=== PATIENT | female | born 2000 | race Caucasian/White ===

== ENCOUNTER 2021-01-17 07:03 | Emergency (ER) | payer SELFPAY ==
[~2021-01-17] VITALS: Ht 160 cm; Wt 117.9 kg
[2021-01-17 07:11] VITALS: BP_SYST 130
--- NOTE | 2021-01-17 07:23 | NUR ---
PT COMES TO ER WITH C/O LEFT THIGH POSS "BUG BITE" "PIMPLE" WORSENING FOR THE LAST 3 DAYS. DENIES ANY FEVERS OR CHILLS. SITE SLIGHTLY RED, WARM TO TOUCH. NO DRAINAGE OR OPEN WOUNDS AT THIS TIME.
--- NOTE | 2021-01-17 07:31 | NUR ---
DR NINA AT BEDSIDE FOR EXAM
[2021-01-17 08:02] LABS: BASOPHILS # (AUTO) 0.1 K/uL (0.0-0.2); BASOPHILS % (AUTO) 0.6 % (0.0-2.0); EOSINOPHILS # (AUTO) 0.1 K/uL (0.0-0.4); EOSINOPHILS % (AUTO) 0.8 % (0.0-4.0); HEMATOCRIT 38.9 % (36-48); HEMOGLOBIN 13.7 g/dL (12.0-16.0); LYMPHOCYTES % (AUTO) 22.4 % (20.5-51.5); MEAN CORPUSCULAR HEMOGLOBIN 29 pg (27-31); MEAN CORPUSCULAR HGB CONC 35 % (32-36); MEAN CORPUSCULAR VOLUME 83 fL (79.0-98.0); MONOCYTES # (AUTO) 0.7 K/uL (0.0-1.0); MONOCYTES % (AUTO) 7.4 % (1.7-9.3); NEUTROPHILS % (AUTO) 68.8 % (40.0-70.0); PLATELET COUNT (AUTO) 308 K/uL (130-430); RED BLOOD CELL COUNT(AUTO) 4.71 MIL/uL (4.2-6.2); RED CELL DISTRIBUTION WIDTH 12.5 % (9.0-15.0); WHITE BLOOD COUNT (AUTO) 8.8 K/uL (4.8-10.8)
[2021-01-17 08:26] LABS: CALCIUM 8.7 mg/dL (8.4-11.0); CREATININE 0.57 mg/dL (0.55-1.30); POTASSIUM 3.8 mmol/L (3.5-5.1)
[2021-01-17 08:31] LABS: ALBUMIN 3.7 g/dL (3.4-4.8); TOTAL BILIRUBIN 0.6 mg/dL (0.0-1.0)
--- NOTE | 2021-01-17 08:36 | NUR ---
NO ACUTE CHANGES IN CONDITION, WAITING FOR DISPOSITION.
[2021-01-17 08:38] LABS: C-REACTIVE PROTEIN QUANT 0.3 mg/dL (0-0.5)
[2021-01-17] MEDS ORDERED: IBUP-1969 PO (09:28)
[2021-01-17] MEDS ORDERED: CLIN300C12 PO (09:28)
[2021-01-17 10:00] VITALS: BP_SYST 122
--- NOTE | 2021-01-17 10:00 | NUR ---
Patient given written and verbal discharge instructions and verbalizes understanding. ER MD discussed with patient the results and treatment provided. Patient in stable condition. ID arm band removed. Rx of given. Patient educated on pain management and to follow up with PMD. Pain Scale . Opportunity for questions provided and answered. Medication side effect fact sheet provided.
== END 2021-01-17 10:00 | disposition home or self-care (01) ==
LOC: SED 07:03
DX: S70.362A Insect bite (nonvenomous), left thigh, initial encounter (principal); L03.116 Cellulitis of left lower limb; W57.XXXA Bitten or stung by nonvenomous insect and other nonvenomous arthropods, initial encounter; Y93.89 Activity, other specified; Y92.89 Other specified places as the place of occurrence of the external cause; Y99.8 Other external cause status
CPT/HCPCS: 36415; 80053; 83605; 85025; 86140; 99283

== ENCOUNTER 2021-11-28 11:08 | Emergency (ER) | payer MEDICAID ==
[~2021-11-28] VITALS: Ht 160 cm; Wt 108.9 kg
[~2021-11-28 11:08] MED LIST: CLIN-142 PO; IBUP-1969 PO
[2021-11-28 11:10] VITALS: BP_SYST 140
--- NOTE | 2021-11-28 11:10 | NUR ---
BROUGHT IN TO TENT AND TRIAGED. WILL ASSUME CARE.
--- NOTE | 2021-11-28 11:15 | NUR ---
PT STATES THAT SHE HAS HAD SORE, SWOLLEN AND PAINFUL THROAT FOR LAST 2 DAYS. STATES PAIN WITH SWALLOWING FOOD.
--- NOTE | 2021-11-28 11:49 | NUR ---
COVID AND STREP SWABS OBTAINED AND SENT TO LAB.
[2021-11-28 12:50] LABS: STREPTOCOCCUS A SCREEN (RAPID) NEGATIVE (NEGATIVE)
--- NOTE | 2021-11-28 13:00 | NUR ---
AWAITING TEST RESULTS
--- NOTE | 2021-11-28 13:20 | NUR ---
DR NINA OUT TO TRIAGE TENT FOR EVALUATION
--- NOTE | 2021-11-28 14:25 | NUR ---
PT OUTSIDE IN TENT WITH FAMILY
[2021-11-28 14:30] LABS: MONOTEST NEGATIVE (NEGATIVE)
[2021-11-28] MEDS ORDERED: IBUP-1969 PO (14:44)
[2021-11-28] MEDS ORDERED: PSEU30TA36 PO (14:44)
[2021-11-28 15:12] VITALS: BP_SYST 127
--- NOTE | 2021-11-28 15:13 | NUR ---
Patient given written and verbal discharge instructions and verbalizes understanding. ER MD discussed with patient the results and treatment provided. Patient in stable condition. ID arm band removed. Rx of IBUPROFEN, SUDAFED given. Patient educated on pain management and to follow up with PMD. Pain Scale 0/10. Opportunity for questions provided and answered. Medication side effect fact sheet provided.
== END 2021-11-28 15:12 | disposition home or self-care (01) ==
LOC: SED 11:08
DX: J02.8 Acute pharyngitis due to other specified organisms (principal); Z79.899 Other long term (current) drug therapy; Z20.822 Contact with and (suspected) exposure to COVID-19
CPT/HCPCS: 36415; 86308-TC; 86403; 87081; 99283

== ENCOUNTER 2022-01-16 07:50 | Emergency (ER) | payer MEDICAID ==
[~2022-01-16] VITALS: Ht 160 cm; Wt 117.9 kg
[~2022-01-16 07:50] MED LIST changes: +PSEU30TA36 PO
[2022-01-16 08:11] VITALS: BP_SYST 134
--- NOTE | 2022-01-16 08:16 | NUR ---
BIB TO ROOM FROM TRIAGE, REPORT TO CASANDRA CHEUNG
--- NOTE | 2022-01-16 08:20 | NUR ---
YOHAN Bradford at bedside examining patient.
--- NOTE | 2022-01-16 08:20 | NUR ---
Pt bib from home. CC sore throat, swelling of throat difficulty swallowing, denies fever, denies NVD, denies headache. Pt is recurrent with sore throat. AAox3. skin intact, denies SOB.
[2022-01-16 09:01] LABS: STREPTOCOCCUS A SCREEN (RAPID) NEGATIVE (NEGATIVE)
--- NOTE | 2022-01-16 09:06 | NUR ---
INFLUENA SWAB OBTAINED AND SENT TO LAB.
--- NOTE | 2022-01-16 09:08 | NUR ---
Radiology dept. with Rikki tech. ambulates with steady gait.
--- NOTE | 2022-01-16 09:12 | NUR ---
Urine specimen not collected, pt states no possibility of currently on menses.
[2022-01-16] MEDS ORDERED: DEXAMETHASONE SOD PHOSPHATE 10 MG/ML VIAL PO ONE (09:30)
--- NOTE | 2022-01-16 09:30 | NUR ---
PT C/O THROAT SWELLING MEDICATED WITH DEXAMETHASONE PER MD ORDER. PT EDUCATED ON MEDICATION THERAPEUTIC VALUE.
[2022-01-16 10:00] VITALS: BP_SYST 134
--- NOTE | 2022-01-16 10:00 | NUR ---
Patient given written and verbal discharge instructions and verbalizes understanding. ER MD discussed with patient the results and treatment provided. Patient in stable condition. ID arm band removed. Patient educated on pain management and to follow up with PMD. Opportunity for questions provided and answered. Medication side effect fact sheet provided.
[2022-01-16] MEDS ORDERED: IBUP-1969 PO (10:11)
== END 2022-01-16 10:26 | disposition home or self-care (01) ==
LOC: SED 07:50
DX: J02.8 Acute pharyngitis due to other specified organisms (principal); Z79.899 Other long term (current) drug therapy; Z20.822 Contact with and (suspected) exposure to COVID-19
CPT/HCPCS: 99284; 71045; 87426; 86403; 36415; 87081; 87804 ×2; J1100

== ENCOUNTER 2022-11-11 10:49 | Emergency (ER) | payer MEDICAID ==
[~2022-11-11] VITALS: Ht 160 cm; Wt 117.9 kg
[2022-11-11 11:09] VITALS: BP_SYST 144; PULSE 87; RESP 18; TEMP 97.5; O2SAT 100
[2022-11-11 11:11] LABS: BASOPHILS # (AUTO) 0.1 K/uL (0.0-0.2); BASOPHILS % (AUTO) 0.9 % (0.0-2.0); EOSINOPHILS # (AUTO) 0.1 K/uL (0.0-0.4); HEMATOCRIT 40.9 % (36-48); HEMOGLOBIN 13.9 g/dL (12.0-16.0); LYMPHOCYTES # (AUTO) 2.5 K/uL (1.0-5.5); LYMPHOCYTES % (AUTO) 40.1 % (20.5-51.5); MEAN CORPUSCULAR HEMOGLOBIN 28 pg (27-31); MEAN CORPUSCULAR HGB CONC 34 % (32-36); MEAN CORPUSCULAR VOLUME 83 fL (79.0-98.0); MONOCYTES # (AUTO) 0.5 K/uL (0.0-1.0); MONOCYTES % (AUTO) 8.5 % (1.7-9.3); NEUTROPHILS % (AUTO) 48.5 % (40.0-70.0); PLATELET COUNT (AUTO) 344 K/uL (130-430); RED CELL DISTRIBUTION WIDTH 12.9 % (9.0-15.0); WHITE BLOOD COUNT (AUTO) 6.2 K/uL (4.8-10.8)
[2022-11-11 11:17] LABS: ERYTHROCYTE SEDIMENTATION RATE 2 MM/HR (0-20)
[2022-11-11 11:40] LABS: CALCIUM 8.8 mg/dL (8.4-11.0); CREATININE 0.65 mg/dL (0.55-1.30); POTASSIUM 4.1 mmol/L (3.5-5.1)
[2022-11-11] MEDS ORDERED: HYDROcodone/ACETAMIN 10-325 MG TAB PO ONE (11:45)
[2022-11-11] MEDS ORDERED: IBUPROFEN 800 MG TABLET PO ONE (11:45)
[2022-11-11 11:53] LABS: ALBUMIN 3.7 g/dL (3.4-4.8); TOTAL BILIRUBIN 0.5 mg/dL (0.0-1.0); TOTAL PROTEIN, SERUM 7.4 g/dL (6.4-8.3)
[2022-11-11 12:21] LABS: SERUM HCG (QUALITATIVE) NEGATIVE (NEGATIVE)
[2022-11-11] MEDS ORDERED: IBUP-1971 PO (12:50)
[2022-11-11] MEDS ORDERED: TRAM50TA2 PO (12:50)
[2022-11-11 13:28] VITALS: BP_SYST 144; PULSE 89; RESP 16; TEMP 98; O2SAT 100
== END 2022-11-11 13:29 | disposition home or self-care (01) ==
LOC: SED 10:49
DX: G43.909 Migraine, unspecified, not intractable, without status migrainosus (principal); Z79.899 Other long term (current) drug therapy
CPT/HCPCS: 36415; 70450-TC; 76376; 80053; 81025; 84703; 85025; 85651-TC; 99284

== ENCOUNTER 2023-05-14 09:00 | Emergency (ER) | payer SELFPAY ==
[~2023-05-14] VITALS: Ht 165.1 cm; Wt 81.6 kg
[~2023-05-14 09:00] MED LIST changes: +IBUP-1971 PO; +TRAM50TA2 PO
[2023-05-14 09:21] VITALS: BP_SYST 129; PULSE 84; RESP 16; TEMP 97.5; O2SAT 98
[2023-05-14 09:43] LABS: BILIRUBIN,URINE NEGATIVE (NEGATIVE); COLOR,URINE YELLOW (YELLOW); GLUCOSE,URINE NEGATIVE (NEGATIVE); KETONES,URINE NEGATIVE (NEGATIVE); LEUKOCYTE ESTERASE ,URINE TRACE (NEGATIVE); NITRITE, URINE NEGATIVE (NEGATIVE); PROTEIN URINE NEGATIVE (NEGATIVE); UROBILINOGEN,URINE 0.2 (0.2-1.0)
[2023-05-14 09:44] LABS: BLOOD, URINE TRACE (NEGATIVE); CLARITY/URINE HAZY (CLEAR)
[2023-05-14] MEDS: ONDANSETRON 4 MG ODT TAB PO ONE (09:49)
[2023-05-14] MEDS: KETOROLAC TROMETHAMINE 30 MG VIAL IM ONE (09:50)
[2023-05-14 09:53] LABS: BASOPHILS # (AUTO) 0.1 K/uL (0.0-0.2); BASOPHILS % (AUTO) 0.9 % (0.0-2.0); EOSINOPHILS # (AUTO) 0.1 K/uL (0.0-0.4); EOSINOPHILS % (AUTO) 1.7 % (0.0-4.0); HEMATOCRIT 39.1 % (36-48); HEMOGLOBIN 13.6 g/dL (12.0-16.0); LYMPHOCYTES # (AUTO) 2.4 K/uL (1.0-5.5); LYMPHOCYTES % (AUTO) 38.9 % (20.5-51.5); MEAN CORPUSCULAR HEMOGLOBIN 29 pg (27-31); MEAN CORPUSCULAR HGB CONC 35 % (32-36); MEAN CORPUSCULAR VOLUME 84 fL (79.0-98.0); MONOCYTES # (AUTO) 0.5 K/uL (0.0-1.0); MONOCYTES % (AUTO) 7.5 % (1.7-9.3); NEUTROPHILS # (AUTO) 3.2 K/uL (1.8-7.7); PLATELET COUNT (AUTO) 359 K/uL (130-430); RED BLOOD CELL COUNT(AUTO) 4.68 MIL/uL (4.2-6.2); RED CELL DISTRIBUTION WIDTH 12.7 % (9.0-15.0); WHITE BLOOD COUNT (AUTO) 6.3 K/uL (4.8-10.8)
[2023-05-14] MEDS: LIDOCAINE PATCH 5% 1 EA TP ONE (10:00)
[2023-05-14 10:03] LABS: BACTERIA,URINE MODERATE /HPF (None Seen); RBC,URINE 0-3 /HPF (0-3)
[2023-05-14] MEDS: NACL 0.9% 1,000 ML IV ONE (10:43)
[2023-05-14] MEDS: cefTRIAXone 1 GM IVPB PREMIX 50 ML IV ONE (10:43)
[2023-05-14 11:14] LABS: CALCIUM 8.9 mg/dL (8.4-11.0); CREATININE 0.58 mg/dL (0.55-1.30); POTASSIUM 3.9 mmol/L (3.5-5.1)
[2023-05-14] MEDS ORDERED: ACET1TAB93 PO (12:26)
[2023-05-14] MEDS ORDERED: IBUP-1969 PO (12:26)
[2023-05-14] MEDS ORDERED: CEPH-548 PO (12:26)
[2023-05-14] MEDS ORDERED: PHEN-890 PO (12:26)
[2023-05-14 12:38] VITALS: BP_SYST 132; PULSE 80; RESP 16; TEMP 97.5; O2SAT 99
== END 2023-05-14 12:36 | disposition home or self-care (01) ==
LOC: SED 09:00
DX: N12 Tubulo-interstitial nephritis, not specified as acute or chronic (principal); N39.0 Urinary tract infection, site not specified; J45.909 Unspecified asthma, uncomplicated
CPT/HCPCS: 99285; 74176; 96365; 71045; 80048; 81000; 81001; 85025; 87040; 87086; 36415; 81025; 96372; 83605; 81015; Q0162; J0696; J1885

== ENCOUNTER 2023-07-16 18:41 | Emergency (ER) | payer SELFPAY ==
[~2023-07-16] VITALS: Ht 160 cm; Wt 127.0 kg
[~2023-07-16 18:41] MED LIST changes: +CEPH-548 PO; +PHEN-890 PO
[2023-07-16 19:16] VITALS: BP_SYST 150; PULSE 86; RESP 20; TEMP 97.1; O2SAT 96
[2023-07-16] MEDS ORDERED: METR-154 PO (22:26)
[2023-07-16] MEDS ORDERED: LISI20TA30 PO (22:26)
[2023-07-16 22:35] VITALS: BP_SYST 151; PULSE 88; RESP 22; TEMP 97.4; O2SAT 98
== END 2023-07-16 22:35 | disposition home or self-care (01) ==
LOC: SED 18:41
DX: L73.2 Hidradenitis suppurativa (principal); I10 Essential (primary) hypertension; J45.909 Unspecified asthma, uncomplicated; Z87.442 Personal history of urinary calculi; Z79.899 Other long term (current) drug therapy; Z79.2 Long term (current) use of antibiotics
CPT/HCPCS: 99283